=== PATIENT | female | born 1970 | race Caucasian/White ===

== ENCOUNTER 2025-01-11 00:03 | Day surgery (SDC) | payer OTHER, SELFPAY ==
[2025-01-02 13:43] VITALS: BMI 22.7
--- NOTE | 2025-01-02 13:53 | PC.NURSE ---
Report to the Outpatient Waiting Room, entrance under the green pavilion located off [facility], at time _0715_ on date _[phone]_. Planned Procedure Time: _0915_.? Time changes happen often and if your time is changed the preop area will call you the afternoon before. - You and your visitor will be asked to self-screen and do not enter if you have any COVID symptoms. Please call surgeon if you need to reschedule. - A mask is optional within the hospital at this time. Patients may have clear liquids (water, carbonated beverages, clear teas, apple juice) until 3 hours prior to surgery with a maximum of 20 ounces. - No food from midnight until time of surgery and no smoking, or chewing tobacco (or any form of nicotine). No chewing gum, candy or mints. Take only the following medications with a SIP of water on the morning of surgery: ___None____ DO NOT STOP ANY OF YOUR OTHER PRESCRIPTION MEDICATIONS PRIOR TO SURGERY EXCEPT THE FOLLOWING Hold all vitamins and supplements for 3 days per anesthesiologist. Medications to discontinue per physician ___None Date to take last dose Please no make-up, nail luxembourgish, hairspray, perfume, deodorant, or body powder the day of surgery.? No jewelry (including any body piercings) or valuables the day of surgery, leave them at home.? Please take a shower or bath the night before, or the morning of, surgery with an antibacterial soap.? Wear comfortable, loose fitting clothing.? - Jewelry must be removed prior to entering the operating room.? Rings and piercings that are not removed may be cut off. - The hospital will not accept responsibility for valuables.? - Please leave all valuables, including medications, at home the day of surgery. If you are going home after surgery, a licensed driver salesman must drive you home.? - NO public transportation without another adult if you receive anesthesia. - We recommend that an adult stay with you for 24 hours following discharge. - We also recommend that you do not drive, make important decision, drink alcoholic beverages, or take any drugs that were not prescribed by your health care provider for at least 24 hours after your discharge time. Follow any additional instructions given to you from your surgeon. Telephone instructions given to _Opal____and asked if any additional questions and then verbalized understanding. Patient advised to call surgeon office or pre surgery nurse liaison [phone] if any additional questions.
--- NOTE | 2025-01-05 17:30 | PM.IMHP ---
H&P: HPI History of Present Illness Date/Time: 01/05/25 17:30 Chief Complaint: MARILYN Narrative: symptomatic MARILYN confirmed on uro-d Review of Systems Review of Systems: All systems reviewed & are unremarkable except as noted in HPI and below [facility] Social History Social History Years smoked: 15 Smoking status: Former smoker Tobacco type: cigarettes Smoking end date: 01/02/07 Alcohol intake: current Living arrangements: with family Spiritual care concerns: No Meds Home Medications and Allergies Home Medications ?Medication ?Instructions ?Recorded ?Confirmed ?Type No Home Medications 01/02/25 01/02/25 History Allergies Allergy/AdvReac Type Severity Reaction Status Date / Time No Known Allergies Allergy Verified 01/02/25 13:42 Exam Narrative: + urethral mobility Assessment and Plan Assessment and plan (1) MARILYN (stress urinary incontinence, female): Code(s): N39.3 - Stress incontinence (female) (male) Status: Acute Assessment and Plan: urethral sling
--- OUTSIDE RECORDS SUMMARY | 2025-01-11 00:08 | XMS_ITS | Clinical Summary ---
Author Organization [facility] Address [address] [place] [address] Phone Care Team Providers Care Line Maintenance Name Role Phone Migel Merlos MD Primary Care Provider +1- [phone] Allergies No known active allergies Medications No known medications Active Problems Patient Care Coordination No te Formatting of this note migh t be different from the original. Primary Care: Migel Merlos MD Referring Provider: Alexa Ruff MD [address] [place] [address] Other: Dr Minnie Vidal Problem Noted Date Diagnosed Date Mastalgia 09/27/2014 Family History Medical History Relation Name Comments Colon Cancer Father Cancer Mother brain tumor Breast Cancer Neg Hx Ovarian Cancer Neg Hx Uterine Cancer Neg Hx Relation Name Status Comments Father Mother Social History Tobacco Use Types Packs/Day Years Used Date Smoking Tobacco: Never Smokeless Tobacco: Never Tobacco Cessation:Counseling Given: No Alcohol Use Standard Drinks/Week Comments Yes 0 (1 standard drink = 0.6 oz pur e alcohol) rare Comments No Sex and Gender Information Value Date Recorded Sex Assigned at Not on file Legal Sex Female 3:12 AM SLIP MAKER Gender Identity Not on file Sexual Orientation Not on file Occupation Industry Job Start Date Job End Date Not on file Not on file Not on file Not on file Last Filed Vital Signs Vital Sign Reading Time Taken Comments Blood Pressure 108/70 09/27/2014 10:25 AM SLIP MAKER Pulse 66 09/27/2014 10:25 AM SLIP MAKER Temperature - - Respiratory Rate - - Oxygen Saturation - - Inhaled Oxygen Concentration - - Weight 62.6 kg (138 lb) 09/27/2014 10:25 AM SLIP MAKER Height 170.2 cm (5' 7 ) 09/27/2014 10:25 AM SLIP MAKER Body Mass Index 21.61 09/27/2014 10:25 AM SLIP MAKER Plan of Treatment Health Maintenance Due Date Last Done Comments DTAP/TDAP/TD VACCINES (1 - Tdap) 1988 HEPATITIS B VACCINES (1 of 3 - 19+ 3-dose series) 1988 CERVICAL CANCER SCREENING 1999 COLORECTAL SCREENING 2014 Colorectal Cancer Screening 2014 FIT-DNA Q 3 years 2014 FIT/FOBT Q 1 year 2014 Flex Sig/CT Colonography Q 5 years 2014 BREAST CANCER SCREENING 08/21/2015 08/21/20 14, 08/21/2014, 08/05/2014, Additional history exists ZOSTER VACCINE (1 of 2) 2019 INFLUENZA VACCINE (#1) 2024 Procedures Procedure Name Priority Date/Time Associated Diagnosis Comments MAMMO DIAGNOSTIC UNI RIGHT W OR WO CAD Routine 08/21/2014 from Last 3 Months or Most Recently Relevant to Health Maintenance Results * (ABNORMAL) MAMMO DIGITAL DIAG UNI RIGHT (08/21/2014) Anatomical Region Laterality Modality Breast Right Other Alexa Ruff MD MAMMO ORDERABLES Edited Res ult - Final from Last 3 Months or Most Recently Relevant to Health Maintenance Insurance BLUE ACCESS/TRUE BLUE PPO Care Teams Line Maintenance Relationship Specialty Start Date End Date Migel Merlos MD PCP - General Family Practice 09/27/14
--- OUTSIDE RECORDS SUMMARY | 2025-01-11 00:08 | XMS_ITS | Encounter Summary ---
Author Organization [facility] Address [address] [place] [address] Care Team Providers Care Shelf Drier Operator Name Role Phone Migel Merlos MD Primary Care Provider +1- [phone] Encounter Details Date Type Department Care Team (Late st Contact Info) Description 06/08/2005 Outpatient Historical [facility] Family Medicine [address] [place] [address] Jaswinder Leija, DO [address] [address] Social History Tobacco Use Types Packs/Day Years Used Date Smoking Tobacco: Never Assessed Comments Unknown Sex and Gender Information Value Date Recorded Sex Assigned at Not on file Legal Sex Female 3:12 AM ORTHODONTIC TREATMENT COORDINATOR Gender Identity Not on file Sexual Orientation Not on file documented as of this encounter Plan of Treatment Not on file documented as of this encounter Visit Diagnoses Not on filedocumented in this encounter Care Teams Shelf Drier Operator Relationship Specialty Start Date End Date Migel Merlos MD PCP - General Family Practice 09/27/14 documented as of this encounter
--- OUTSIDE RECORDS SUMMARY | 2025-01-11 00:08 | XMS_ITS ---
Author Organization [facility] Address [address] [place] [address] Care Team Providers Care Trial Court Justice Name Role Phone Elijah Frazier Primary Care Provider [phone] Saira Esparza Unavailable [phone] Reason For Referral Reason Routine screen for c olorectal cancer Diagnosis 1 Encounter for screen ing colonoscopy (Z12.11) Referral Organization [facility] Referring Provider First Name Saira Referring Provider Last Name Vilma Referring Provider Speciality Nurse Prac titioner Referred Provider Specialty Gastroentero logy General Notes Adilia Becker 0 11/29/2024 03:30:02 PM CASH POSTING REPRESENTATIVE >Spoke with pt who stated she is a current pt of Dr. Contreras, Referral faxed to Dr. Contreras for colonoscopy, Adilia Becker 12/03/2024 03:42:55 PM CASH POSTING REPRESENTATIVE >Followed up on referral and Dr. Contreras's office didn't receive referral. Faxed referral to alternative fax#[phone], Adilia Becker 12/06/2024 08:52:34 AM CASH POSTING REPRESENTATIVE >Pt called and stated she was not a current pt of Dr. Contreras and would need to be referred elsewhere, Adilia Becker 12/06/2024 09:36:32 AM CASH POSTING REPRESENTATIVE >Referral faxed to Dr. Ng Referral Priority Routine REASON FOR VISIT Yearly check up Medications Medication SIG (Take, Route, Frequency, Duration) Notes Start Date End Date Status Vitamin D3 50 MCG (1999) 1 Oral every day; Duration: 0 05/12/2021 Active Vital Signs Blood pressure systolic 132 mm Hg 11/29/19 25 Blood pressure diastolic 78 mm Hg 025 Heart Rate 78 /min 11/29/2024 Temperature 99.2 degrees Fahrenheit 01/09/20 25 Oximetry 99 % 11/29/2024 Height 66.60 in 11/29/2024 Weight 147.1 lbs 11/29/2024 Weight-kg 66.72 kg 11/29/2024 Height-cm 169.16 cm 11/29/2024 BMI 23.31 kg/m2 11/29/2024 Encounters Encounter Location Date Provider Diagnosis [address] [address] 11/29/2024 Saira Esparza Encounter for genera l adult medical examination without abnormal findings Z00.00 ; Vitamin D deficiency, unspecified E55.9 ; Female bladder prolapse N81.10 and Encounter for screening colonoscopy Z12.11 Assessments Encounter Date Diagnosis (ICD Code) Assessment Notes Treatment Notes Treatment Clinical Notes 11/29/2024 Encounter for general adult medical examination without abnormal findings (ICD-10 - Z00.00) - Vital Signs stable - UTD on mammogram - Recommended completing zoster vaccination series with second dose as soon as possibe. - UTD on all other recommended vaccinations. - Plans on getting routine labs done at [facility] in [place], [place] on discount days next week. 11/29/2024 Vitamin D deficiency, unspecified (ICD-10 - E55.9) - Encouarged to continue to take daily Vitamin D3 supplementation, especially during winter months. - Told her to make sure VItamin D level is included in labs that she will get at the hospital on discount days. 11/29/2024 Female bladder prolapse (ICD-10 - N81.10) - Plan is for bladder prolapse repair in December this year at [facility]. 11/29/2024 Encounter for screening colonoscopy (ICD-10 - Z12.11) - Order placed for routine colonoscopy screen. - Last colonoscopy was normal done by Dr. Contreras. Plan Of Treatment Treatment Notes Assessment Notes Encounter for general adult medical examination without abnormal findings - Vital Signs stable - UTD on mammogram - Recommended completing zoster vaccination series with second dose as soon as possibe. - UTD on all other recommended vaccinations. - Plans on getting routine labs done at [facility] in [place], [place] on discount days next week. Vitamin D deficiency, unspecified - Encouarged to continue to take daily Vitamin D3 supplementation, especially during winter months. - Told her to make sure VItamin D level is included in labs that she will get at the hospital on discount days. Female bladder prolapse - Plan is for bladder prolapse repair in December this year at [facility]. Encounter for screening colonoscopy - Order placed for routine colonoscopy screen. - Last colonoscopy was normal done by Dr. Contreras. Referrals Referral Date Details 11/29/2024 11/29/2024, Routine screen for colorectal cancer Next Appt Details Follow Up: 1 Year, Reason: History and Physical Notes * Examination Category Sub-Category Detail Notes General Examination General appearance: Alert an d in no distress Head: normocephalic, atrau matic Eyes: both eyes, normal, e xtraocular movement intact (EOMI), conjunctiva clear Ears: tympanic membrane in tact and clear Throat: clear Neck / thyroid: no masses and/or ten derness, no jugular venous distention, trachea midline Heart: regular rate and rhy thm, murmur heard Lungs: clear to auscultatio n bilaterally, with good air movement and no rales, rhonchi or wheezes Abdomen: soft with good bowel sounds, nontender, and no masses or hepatosplenomegaly Neurologic: alert and oriented, cognitive exam grossly normal, gait normal, cooperative with exam Skin: warm and dry; good s kin turgor, with no suspicious skin lesions Extremities: normal extremity wit h no clubbing, cyanosis or edema Peripheral pulses: 2+ posterior tibial, 2+ radial Musculoskeletal: Normal bulk and tone in extremities Psych: normal affect / mood , thought process is logical and goal directed without suidical ideation or delusions Oral cavity: normal, mucosa moist Consultation Request Notes Referral Date Referring Provider Referred Provider Not es 11/29/2024 Saira Esparza , Routine scre en for colorectal cancer Progress Notes * Opal JOHNSONDOB:1970 ( 54 yo F)Acc No.[id number]:11/29/2024 Patient: Opal Coffman Provider: Gabby Esparza NP :1970 A ge:54 Y S ex:Female Date:11/29/2024 Phone: Address:[facility] Pcp:Elijah Frazier Subjective: * Chief Complaints: * 1 . Yearly check up. * HPI: H PI: Opal is here for her yearly annual check up. She plans to get her labs done in [place] but has not completed them yet. She has a history of vitamin D deficiency and takes vitamin D3 supplements, though she has not taken them for months. Opal gets mammograms yearly with normal findings. She has a family history of colon cancer, but no known family history of breast or cervical cancer. She follows with OBGYN for pap smears, which have had normal results. Opal reports a bladder prolapse that significantly affects her daily life, with surgery scheduled for repair for January 11, 2025. She denies smoking or drinking. She receives flu shots yearly and has had the first dose of the shingles vaccine, with the second dose pending. She has a heart murmur and sees a bindery machine setter/set up operator annually. Opal has not had a menstrual cycle for almost six months, indicating she may be approaching menopause. She has hot flashes on occassion. She reports no current dental, vision, or hearing concerns. * ROS: G eneral / Constitutional: Patient denies f atigue, headache, lightheadedness, weakness. O phthalmologic: Patient denies b lurry vision, change in vision, eye pain.? E NT: Patient denies d ecreased hearing, difficulty in swallowing, dry mouth, ear pain, sore throat. R espiratory: Patient denies c hest pain, cough, shortness of breath.? C ardiovascular: Patient denies d izziness, irregular heartbeat, palpitations, weakness. G astrointestinal: Patient denies a bdominal pain, blood in stool, heartburn.? G enitourinary: Patient denies b lood in the urine, difficulty urinating, frequent urination. N eurologic: Patient denies l ow back pain, tingling / numbness, tremor.? P sychiatric: Patient denies a nxiety, depressed mood, difficulty sleeping, substance abuse. * Medical History: * Surgical History: * Family History: F ather: Colon Cancer. U ncle: Paternal Uncle: Colon Cancer. * Social History: M igrated Social History: M igrated Social History: Marital status:. * Medications: T aking Vitamin D3 50 MCG (1999) Capsule 1 Oral every day , Medication List reviewed and reconciled with the patient Objective: * Vitals: B P:132/78mm Hg, HR:78/min, Temp:99.2F, Oxygen sat %:99%, Ht: 66.60 in, Wt:147.1lbs, Wt-k.72 kg, Ht-cm: 169.16 cm, BMI:23.31Index, Body Surface Area: 1.77. * Examination: G eneral Examination: General appearance: A lert and in no distress. Head: n ormocephalic, atraumatic. Eyes: b oth eyes, normal, extraocular movement intact (EOMI), conjunctiva clear. Ears: t ympanic membrane intact and clear. Oral cavity: n ormal, mucosa moist. Throat: c lear. Neck / thyroid: n o masses and/or tenderness, no jugular venous distention, trachea midline. Skin: w arm and dry; good skin turgor, with no suspicious skin lesions. Heart: r egular rate and rhythm, murmur heard. Lungs: c lear to auscultation bilaterally, with good air movement and no rales, rhonchi or wheezes. Abdomen: s oft with good bowel sounds, nontender, and no masses or hepatosplenomegaly. Musculoskeletal: N ormal bulk and tone in extremities. Extremities: n ormal extremity with no clubbing, cyanosis or edema. Peripheral pulses: 2 + posterior tibial, 2+ radial. Neurologic: a lert and oriented, cognitive exam grossly normal, gait normal, cooperative with exam. Psych: n ormal affect / mood, thought process is logical and goal directed without suidical ideation or delusions. Assessment: * Assessment: 1. E ncounter for general adult medical examination without abnormal findings - Z00.00 (Primary) 2 . V itamin D deficiency, unspecified - E55.9 S pecify :Src Problem: Vitamin D deficiency 3 . F emale bladder prolapse - N81.10 4 . E ncounter for screening colonoscopy - Z12.11 Plan: * Treatment: 2. V itamin D deficiency, unspecified Notes: - Encouarged to continue to take daily Vitamin D3 supplementation, especially during winter months.? - Told her to make sure VItamin D level is included in labs that she will get at the hospital on discount days. 3. F emale bladder prolapse Notes: - Plan is for bladder prolapse repair in December this year at [facility]. 4. E ncounter for screening colonoscopy Notes: - Order placed for routine colonoscopy screen. - Last colonoscopy was normal done by Dr. Contreras. Referral To:Gastroenterology Reason:Routine screen for colorectal cancer * Follow Up: 1 Year Billing Information: * Visit Code: [id number] PREV VISIT EST AGE 40-64. * POSTING REPRESENTATIVE Sign off status: Completed true * Provider: Gabby Esparza NP Date: 0 11/29/2024 Generated for Vinny butt/Rhonda/Louisitting on: 0 01/11/2025 12:08 AM CASH POSTING REPRESENTATIVE
--- OUTSIDE RECORDS SUMMARY | 2025-01-11 00:08 | XMS_ITS | Patient Health Record ---
Author Organization [facility] dicine Address [address] [place] [address] Care Team Providers Care Fur Grader Name Role Phone Elijah Frazier Primary Care Provider [phone] Glendy Luna Unavailable [phone] Saira Esparza Unavailable [phone] Migration, Provider Unavailable Unavailable Allergies No Known Allergies Reason For Referral Reason Routine screen for c olorectal cancer Diagnosis 1 Encounter for screen ing colonoscopy (Z12.11) Referral Organization [facility] Referring Provider First Name Saira Referring Provider Last Name Vilma Referring Provider Speciality Nurse Prac titioner Referred Provider Specialty Gastroentero logy General Notes Adilia Becker 0 11/29/2024 03:30:02 PM CANDY SPREADER HELPER >Spoke with pt who stated she is a current pt of Dr. Contreras, Referral faxed to Dr. Contreras for colonoscopy, Adilia Becker 12/03/2024 03:42:55 PM CANDY SPREADER HELPER >Followed up on referral and Dr. Contreras's office didn't receive referral. Faxed referral to alternative fax#[phone], Adilia Becker 12/06/2024 08:52:34 AM CANDY SPREADER HELPER >Pt called and stated she was not a current pt of Dr. Contreras and would need to be referred elsewhere, Adilia Becker 12/06/2024 09:36:32 AM CANDY SPREADER HELPER >Referral faxed to Dr. Ng Referral Priority Routine Medications Medication SIG (Take, Route, Frequency, Duration) Notes Start Date End Date Status Vitamin D3 50 MCG (1999 UT) 1 Oral every day; Duration: 0 05/12/2021 Active Problems Problem Type SNOMED Code ICD Code Onset Dates Problem Status W/U Status Risk Notes Problem Fever (459753544) Fever, unspecified (R50.9) 11/17/20 21 Problem resolved confirmed Problem Vitamin D deficiency (38116334) Vitamin D deficiency, unspecified (E55.9) 05/12/20 21 Active confirmed Problem Muscle weakness (79529412) Muscle weakness (generalized) (M62.81) 10/11/20 17 Problem resolved confirmed Problem Anemia (869591824) Anemia, unspecified (D64.9) 04/16/20 22 Active confirmed Problem Raynaud's disease (717739212) Raynaud's syndrome without gangrene (I73.00) 05/12/20 21 Active confirmed Problem Cardiac murmur, unspecified (R01.1) 04/16/20 22 Active confirmed Problem Adult health examination (383988161) Encounter for general adult medical examination without abnormal findings (Z00.00) 05/12/20 Inactive confirmed Problem Allergic rhinitis (72997268) Allergic rhinitis, cause unspecified (477.9) 03/28/20 18 Problem resolved confirmed Problem Other musculoskeletal symptoms referable to limbs (729.89) 10/11/20 17 Problem resolved confirmed Problem Malaise and fatigue (381172675) Other malaise and fatigue (780.79) 10/07/20 17 Problem resolved confirmed Problem Precordial pain (20015441) Precordial pain (786.51) 10/25/20 17 Problem resolved confirmed Problem Chest pain (26475800) Chest pain, other (786.59) 10/10/20 17 Problem resolved confirmed Problem Hypoglycemia (932191309) Hypoglycemia, unspecified (E16.2) 05/12/20 21 Problem resolved confirmed Problem Acute sinusitis (00304603) Acute sinusitis, unspecified (J01.90) 03/28/20 18 Problem resolved confirmed Problem Acute pharyngitis (731348731) Acute pharyngitis, unspecified (J02.9) 11/17/20 21 Problem resolved confirmed Problem Acute bronchitis (11382808) Acute bronchitis, unspecified (J20.9) 11/17/20 21 Problem resolved confirmed Problem Allergic rhinitis caused by pollen (disorder) (63035369) Allergic rhinitis due to pollen (J30.1) 03/28/20 18 Problem resolved confirmed Problem Chest pain (82719703) Other chest pain (R07.89) 10/10/20 17 Problem resolved confirmed Problem Chest pain (27415729) Chest pain, unspecified (R07.9) 10/25/20 17 Problem resolved confirmed Problem Fatigue (58556297) Other fatigue (R53.83) 10/07/20 17 Problem resolved confirmed Problem High antibody titer (800371233) Raised antibody titer (R76.0) 10/10/20 17 Problem resolved confirmed Problem SI - Stress incontinence (95332018) Stress incontinence (female) (male) (N39.3) 12/09/19 23 Active confirmed Vital Signs Heart Rate 78 /min 11/29/2024 Temperature 99.2 degrees Fahrenheit 11/29/2024 Height-cm 169.16 cm 11/29/2024 Oximetry 99 % 11/29/2024 Blood pressure diastolic 78 mm Hg 11/29/2024 Weight-kg 66.72 kg 11/29/2024 Height 66.60 in 11/29/2024 Blood pressure systolic 132 mm Hg 11/29/2024 Weight 147.1 lbs 11/29/2024 BMI 23.31 kg/m2 11/29/2024 Encounters Encounter Location Date Provider Diagnosis [address] [address] 10/16/2024 Provider Migration Encounter for screening for malignant neoplasm of colon Z12.[address] [address] 11/29/2024 Saira Esparza Encounter for general adult medical examination without abnormal findings Z00.00 ; Vitamin D deficiency, unspecified E55.9 ; Female bladder prolapse N81.10 and Encounter for screening colonoscopy Z12.[address] [address] 10/20/2024 Provider Migration [address] [address] 10/21/2024 Provider Migration Assessments Encounter Date Diagnosis (ICD Code) Assessment Notes Treatment Notes Treatment Clinical Notes 10/16/2024 Encounter for screening for malignant neoplasm of colon (ICD-10 - Z12.11) 11/29/2024 Vitamin D deficiency, unspecified (ICD-10 - E55.9) - Encouarged to continue to take daily Vitamin D3 supplementation, especially during winter months. - Told her to make sure VItamin D level is included in labs that she will get at the hospital on discount days. 11/29/2024 Encounter for general adult medical examination without abnormal findings (ICD-10 - Z00.00) - Vital Signs stable - UTD on mammogram - Recommended completing zoster vaccination series with second dose as soon as possibe. - UTD on all other recommended vaccinations. - Plans on getting routine labs done at [facility] in [place], [place] on discount days next week. 11/29/2024 Female bladder prolapse (ICD-10 - N81.10) - Plan is for bladder prolapse repair in December this year at [facility]. 11/29/2024 Encounter for screening colonoscopy (ICD-10 - Z12.11) - Order placed for routine colonoscopy screen. - Last colonoscopy was normal done by Dr. Contreras. Plan Of Treatment No Information Insurance Providers Payer Name Payer Address Payer Phone Subscriber Number Group Number Insured Name Patient Relationship to Insured Coverage Start Date Coverage End Date [employer] [address] [place] [address] [id number] Opal Self Self - patient is the insured 0 3 [facility] [address] [address] [place] [address] [id number] Opal Self Self - patient is the insured 4 Medical (General) History Medical History History ICD Code Excessive bleeding in the premenopausal period Excessive bleeding in the premenopausal period N92.4 Hematuria, unspecified R31.9 Abnormality of plasma protein, unspecifi ed R77.9 Surgical History Surgery Date(Month/Year) section 2017 colonoscopy 2018
--- OUTSIDE RECORDS SUMMARY | 2025-01-11 00:08 | XMS_ITS ---
Author Organization [facility] Address [address] [place] [address] Care Team Providers Care Sawdust Drier Name Role Phone Elijah Frazier Primary Care Provider [phone] Migration, Provider Unavailable Unavailable REASON FOR VISIT [facility] Encounters Encounter Location Date Provider Diagnosis [facility] [address] [place] [address] 10/20/2024 Provider Migration Plan Of Treatment Medication Medication Name Sig Start Date Stop Date Notes Sulfamethoxazole-Trimethop rim 200-40 MG/5ML 20 Oral two times a day; Duration: 5 09/02/2022 09/06/2022 Pyridium 200 MG 1 Oral three times a day; Duration: 0 12/09/2022 12/09/2022 Azithromycin 250 MG 2 Oral every day; Duration: 1 11/17/2021 11/17/2021 Macrobid 100 MG 1 Oral every 12 hours; Duration: 5 12/09/2022 12/13/2022 Benzonatate 200 MG 1 Oral three times a day; Duration: 0 11/17/2021 09/01/2022 ,discontinuereason :Discontinued,PRN Reason:for cough Progress Notes * Opal JOHNSONDOB:1970 ( 54 yo F)Acc No.[id number]:10/20/2024 Patient: Opal MCNAMARA :1970 A ge:54 Y S ex:Female Phone: Address:[address] [place], [address] * Refills Stop Azithromycin Tablet, 250 MG, Oral, 6, 2, every day, 1 Stop Pyridium Tablet, 200 MG, Oral, 10, 1, three times a day, 0 Stop Sulfamethoxazole-Trimethoprim Suspension, 200-40 MG/5ML, Oral, 200, 20, two times a day, 5 Stop Macrobid Capsule, 100 MG, Oral, 10, 1, every 12 hours, 5 Stop Benzonatate Capsule, 200 MG, Oral, 30, 1, three times a day, 0 Subjective: * Chief Complaints: * E MR-Chidi * Medical History: * Surgical History: * Hospitalization/Major Diagno stic Procedure: * Medications: Objective: * Physical Examination: Plan: * Treatment: * Procedure Codes: Billing Information: * Visit Code: * Procedure Codes: * * Date:
--- OUTSIDE RECORDS SUMMARY | 2025-01-11 00:08 | XMS_ITS ---
Author Organization [facility] Address [address] [place] [address] Care Team Providers Care Funeral Home Makeup Artist Name Role Phone Elijah Frazier Primary Care Provider [phone] Migration, Provider Unavailable Unavailable Allergies No Known Allergies REASON FOR VISIT [facility] Medications Medication SIG (Take, Route, Frequency, Duration) Notes Start Date End Date Status Vitamin D3 50 MCG (1999 UT) 1 Oral every day; Duration: 0 05/12/2021 Active Encounters Encounter Location Date Provider Diagnosis [facility] [address] [place] [address] 10/21/2024 Provider Migration Plan Of Treatment No Information Progress Notes * Opal JOHNSONDOB:1970 ( 54 yo F)Acc No.[id number]:10/21/2024 Patient: Opal MCNAMARA :1970 A ge:54 Y S ex:Female Phone: Address:[place], [address] Subjective: * Chief Complaints: * E MR-Chidi * Medical History: * Surgical History: section 2017 colonoscopy 2019 * Hospitalization/Major Diagno stic Procedure: * Family History: F ather: Colon Cancer. U ncle: Paternal Uncle: Colon Cancer. * Social History: M igrated Social History: M igrated Social History: Marital status:. * Medications: T akingVitamin D3 50 MCG (1999 UT) Capsule 1 Oral every day Taking Vitamin D3 50 MCG (2000 UT) Capsule 1 Oral every day * Allergies: N .K.D.A. Objective: * Physical Examination: Plan: * Treatment: * Procedure Codes: Billing Information: * Visit Code: * Procedure Codes: * * Date:
--- NOTE | 2025-01-11 07:14 | WPDHPUPDATE1 ---
History and Physical Update Update Date/Time: 01/11/25 07:14 History and Physical has been reviewed, including an updated exam of the patient. There are NO changes in the patient's condition. Risks, benefits, and alternatives have been discussed and questions answered. Patient agrees to proceed with procedure.
[2025-01-11 08:52] VITALS: BP 127/78; PULSE 77; RESP 18; TEMP 36.4; O2SAT 100
[2025-01-11 09:09] LABS: BEDSIDEPREGUCG Negative (Negative)
[2025-01-11] MEDS: LACTATED RINGERS 1,000 ML 30 ML IV CONT (09:30)
--- NOTE | 2025-01-11 09:34 | WPDANESEPPF ---
Anes - Initial Pre Proc Eval Procedure: Operation Date: 01/11/25 10:15 Proposed Procedures p Urethral Sling - Juan Shi MD Date/Time: 01/11/25 09:34 Surgeon: Juan Shi MD Pre Op Diagnosis: stress incont Patient Data Age: 54 Gender: F Height: 1.7 m Weight: 65 kg Last Vital Signs Temp 36.4 C 01/11/25 08:52 Pulse 77 01/11/25 08:52 Resp 18 01/11/25 08:52 BP 127/78 01/11/25 08:52 Pulse Ox 100 01/11/25 08:52 O2 Del Method Room Air 01/11/25 08:52 Allergies Allergy/AdvReac Type Severity Reaction Status Date / Time No Known Allergies Allergy Verified 01/11/25 09:07 Home Medications ?Medication ?Instructions ?Recorded ?Confirmed ?Type hydrocodone 5 mg-acetaminophen 325 1 tablet PO Q6H PRN pain #20 tabs 01/11/25 Rx mg tablet Laboratory Tests 01/11/25 09:08 POC Urine HCG, Qual Negative (Negative) Patient hx anesthesia problems: none Family hx anesthesia problems: none Results Review: All pre-operative results and documents have been reviewed as part of the pre-operative evaluation. [facility] Social History Social History Years smoked: 15 Smoking status: Former smoker Tobacco type: cigarettes Smoking end date: 01/02/07 Alcohol intake: current Living arrangements: with family Spiritual care concerns: No Anes - Eval Final PreProcedure Day of Procedure 01/11/25 09:34 Patient weight: normal Heart: regular rate and rhythm Lungs: clear to auscultation and normal air movement Airway: Mallampati scale class 1 Neurological: alert and oriented Last oral intake: >/= 8 hours ASA classification: II Emergent: no Anesthetic plan: proceed Anesthesia type and monitoring: general GIVS and standard monitoring Results Review: All pre-operative results and documents have been reviewed as part of the pre-operative evaluation. Informed Consent: The patient's anesthetic plan and its attendant risks and benefits were discussed with the patient/family/POA. Questions were solicited and answers provided to the satisfaction of the patient/family/POA.
[2025-01-11] MEDS: ceFAZolin 2 GM/D5W 50 ML 2 GM/50 ML BAG IVPB (10:28)
[2025-01-11] MEDS: BUPIVACAINE/EPINEPHRINE 0.5% 30 ML VIAL 10 ML INFILTRATE (10:38)
--- NOTE | 2025-01-11 10:57 | W.PM.PROC2 ---
Procedure Note - Detailed Date of Procedure 01/11/25 Pre-op Diagnosis stress incont Post-op Diagnosis Same Procedure Performed mid urethral sling cystoscopy Surgeon Juan Shi MD Anesthesia MAC and Local Indications This is a female with confirm stress urinary incontinence. She desires surgical correction. She understands the risks of bleeding, infection, injury to the urinary tract, vaginal mesh extrusion, urinary tract mesh erosion, obstructive voiding requiring a secondary procedure, hip and leg pain, dyspareunia, inability to improve overactive bladder symptoms. She agrees to proceed. Description of Procedure She was correctly identified. Informed consent obtained. She was brought the operating room. She was given appropriate anesthesia. She was given appropriate perioperative antibiotics. A time-out performed. I marked out the site of the inner thigh incisions. I anesthetized the skin and made those incisions. I anesthetized the anterior vaginal wall over the mid urethra. I made a 1 cm incision. I dissected out laterally taking great care not to injure the refilled vaginal wall. I passed the helical trocars. First on the left. Then on the right. I did this from the thigh incision towards the vaginal incision. The sling was connected to the trocars and brought out through the thigh incision. I tensioned the sling appropriately. I cut and the plastic sheaths. I then closed the incision with 2 0 Vicryl. On cystoscopy there is no tumors or surgical artifact. There was no surgical artifact in the urethra. I cut the excess sling material. Close incisions with glue. She was awakened and transferred to the PACU in stable condition. Implants Urethral sling Drains No Packing No Pathology None sent Complications No immediate complications Condition Stable Disposition PACU
[2025-01-11 10:58] VITALS: BP 96/56; PULSE 73; RESP 12; O2SAT 96
[2025-01-11 11:25] VITALS: BP 107/55; PULSE 68; RESP 18; O2SAT 100
[2025-01-11 11:55] VITALS: BP 115/68; PULSE 58; RESP 20; O2SAT 100
[2025-01-11 12:10] VITALS: BP 120/71; PULSE 76; RESP 18
== END 2025-01-11 12:18 | disposition home or self-care (01) ==
PROVIDERS: PCP Pediatrics; Visit Provider Urology
PROC: (CPT 57288; principal; 2025-01-11 10:15)
DX: N39.3 Stress incontinence (female) (male) (principal); Z87.891 Personal history of nicotine dependence
CPT/HCPCS: 57288; C1771; J0690; J1100; J2003; J2250; J2405; J2704; J3010; J7120